=== PATIENT | male | born 1965 | race Caucasian/White ===

== ENCOUNTER 2019-11-11 21:36 | Emergency (ER) | payer BC, SELFPAY ==
[2019-11-11 21:44] VITALS: BP 163/104; PULSE 93; RESP 18; TEMP 36.6; O2SAT 97
--- NOTE | 2019-11-11 22:11 | ED.EXTPRO ---
HPI - Extremity Problem General Chief complaint: Extremity Problem,Nontraumatic <Jonathan Lebron PA-C - Last Filed: 11/11/19 22:17> Stated complaint: Possible DVT in R leg <Jonathan Lebron PA-C - Last Filed: 11/11/19 22:17> Time Seen by Provider: 11/11/19 22:11 <Jonathan Lebron PA-C - Last Filed: 11/11/19 22:17> Source: patient <Jonathan Lebron PA-C - Last Filed: 11/11/19 22:17> Mode of arrival: ambulatory <KINDRA Hopkins Last Filed: 11/11/19 22:17> Limitations: no limitations <Jonathan Lebron PA-C - Last Filed: 11/11/19 22:17> History of Present Illness HPI Narrative: Patient is a 53-year-old male who presents to emergency department for evaluation of right leg pain patient notes having jumped out of his truck last night when he felt instant pain in the right calf which is worse with weightbearing and activity. Patient denies similar occurrence in the past. Patient presents with concern for DVT. Patient notes swelling and tenderness at this time . Patient increased denies any dyspnea chest pain lightheadedness dizziness or URI symptoms. Pain is worse with weightbearing and activity is noted. Patient has not taken anything for his symptoms. Patient with history of tobacco abuse. Patient is from [place] <Jonathan Lebron PA-C - Last Filed: 11/11/19 22:17> Related Data Allergies/Adverse reactions: Allergies Allergy/AdvReac Type Severity Reaction Status Date / Time No Known Allergies Allergy Verified 11/11/19 21:47 <Jonathan Lebron PA-C - Last Filed: 11/11/19 22:17> Review of Systems Review of Systems: All systems reviewed & are unremarkable except as noted in HPI and below <Jonathan Lebron PA-C - Last Filed: 11/11/19 22:17> PMFSH Social History Social History: Social History (Updated 11/11/19 @ 22:13 by Jonathan Lebron PA-C) Smoking status: Current every day smoker <Jonathan Lebron PA-C - Last Filed: 11/11/19 22:17> Exam Narrative: Exam Narrative: GENERAL: Well-appearing, well-nourished, and in no acute distress. HEAD: Normocephalic, atraumatic. EYES: PERRLA and EOMI. ENT: Nares clear, no rhinorrhea or epistaxis. Mucous membranes moist. CHEST: Clear to auscultation. No respiratory distress. No wheezes rales or rhonchi HEART: Regular rate and rhythm. No murmur heard. Normal peripheral pulses. EXTREMITIES: Normal range of motion. No edema. Swelling and tenderness of the right calf in comparison to the left SKIN: Warm, dry, no rash. NEURO: No focal deficits. Alert and oriented x3. Cranial nerves II through XII grossly intact. Neurovascularly intact PSYCH: Normal mood and affect. <KINDRA Hopkins Last Filed: 11/11/19 22:17> Course Course Emergency Course: Patient in the room aware of case findings treatment plan and diagnosis will return in the morning for ultrasound rule out DVT was given Lovenox to bridge him to the morning agrees to return <KINDRA Hopkins Last Filed: 11/11/19 22:17> Vital Signs Vital signs: Vital Signs Temperature 97.9 F 11/11/19 21:44 Pulse Rate 93 11/11/19 21:44 Respiratory Rate 18 11/11/19 21:44 Blood Pressure 163/104 H 11/11/19 21:44 Pulse Oximetry 97 11/11/19 21:44 Temperature 97.9 F 11/11/19 21:44 Pulse Rate 90 11/11/19 22:26 Respiratory Rate 20 11/11/19 22:26 Blood Pressure 160/100 H 11/11/19 22:26 Pulse Oximetry 98 11/11/19 22:26 <KINDRA Hopkins Last Filed: 11/11/19 22:17> Vital Signs Temperature 97.9 F 11/11/19 21:44 Pulse Rate 93 11/11/19 21:44 Respiratory Rate 18 11/11/19 21:44 Blood Pressure 163/104 H 11/11/19 21:44 Pulse Oximetry 97 11/11/19 21:44 Temperature 97.9 F 11/11/19 21:44 Pulse Rate 90 11/11/19 22:26 Respiratory Rate 20 11/11/19 22:26 Blood Pressure 160/100 H 11/11/19 22:26 Pulse Oximetry 98 11/11/19 22:26 <Kate Brady MD - Last Filed:
[2019-11-11] MEDS: ENOXAPARIN 120 MG/0.8 ML SYRINGE 134 MG SUB-Q (22:22)
[2019-11-11 22:26] VITALS: BP 160/100; PULSE 90; RESP 20; O2SAT 98
== END 2019-11-11 22:26 | disposition home or self-care (01) ==
PROVIDERS: Emergency Provider Emergency Medicine
DX: M79.661 Pain in right lower leg (principal); F17.200 Nicotine dependence, unspecified, uncomplicated
CPT/HCPCS: 96372; 99283; J1650

== ENCOUNTER 2019-11-12 07:08 | Outpatient (CLI) | payer BC, SELFPAY ==
--- NOTE | ~2019-11-12 | US_ITS ---
EXAMINATION: US venous doppler LE RT DATE: 11/12/2019 07:48 INDICATION: Right lower limb pain and swelling TECHNIQUE: Grayscale ultrasound images without and with compression and Doppler ultrasound images of the right lower extremity veins were obtained. COMPARISON: None. FINDINGS: The visualized portions of right common femoral vein, profunda (deep) femoral vein, femoral vein, pop liteal vein, peroneal trunk, posterior tibial veins, peroneal veins, gastrocnemius vein and greater s aphenous vein outflow are patent. IMPRESSION: 1. No deep venous thrombosis in the right lower limb. Reviewed, dictated and finalized at location A.
== END 2019-11-12 07:09 | disposition home or self-care (01) ==
PROVIDERS: Visit Provider Family Medicine
DX: M79.661 Pain in right lower leg (principal)
CPT/HCPCS: 93971